=== PATIENT | male | born 1935 | race Caucasian/White ===

== ENCOUNTER 2022-09-12 15:30 | Emergency (ER) | payer OTHER ==
[~2022-09-12] VITALS: Ht 180.3 cm; Wt 70.8 kg
[2022-09-12 16:07] VITALS: BP_SYST 141
--- NOTE | 2022-09-12 16:51 | NUR ---
Patient to ER bed 04 to gown for evaluation. Side rails up.
--- NOTE | 2022-09-12 16:59 | NUR ---
Pt brought by self,A&Ox4, pt presents to ER with LAC on L ear after trip and fall, denies other injuries, denies taking blood thiners, skin pink and warm, cap refill <3.
--- NOTE | 2022-09-12 17:34 | NUR ---
PATIENT TAKEN TO RADIOLOGY
--- NOTE | 2022-09-12 18:30 | NUR ---
EDP AT BEDSIDE FOR INITIAL ASSESSMENT
[2022-09-12] MEDS ORDERED: LIDOCAINE 1% 10 MG/ML, 20 ML MDV INJ ONE (18:45)
--- NOTE | 2022-09-12 19:50 | NUR ---
AT BEDSIDE DOING LAC REPAIR
[2022-09-12] MEDS ORDERED: ACET325T PO (20:00)
[2022-09-12] MEDS ORDERED: BACITRACIN 1 GM OINT TP ONE (20:15)
--- NOTE | 2022-09-12 20:21 | NUR ---
Patient given written and verbal discharge instructions and verbalizes understanding. ER MD discussed with patient the results and treatment provided. Patient in stable condition. ID arm band removed. Rx of Tylenol given. Patient educated on pain management and to follow up with PMD. Pain Scale 2/10. Opportunity for questions provided and answered. Medication side effect fact sheet provided.
[2022-09-12 20:22] VITALS: BP_SYST 141
== END 2022-09-12 20:22 | disposition home or self-care (01) ==
LOC: SED 15:30
DX: S01.01XA Laceration without foreign body of scalp, initial encounter (principal); S01.312A Laceration without foreign body of left ear, initial encounter; I10 Essential (primary) hypertension; Z79.899 Other long term (current) drug therapy; Y04.2XXA Assault by strike against or bumped into by another person, initial encounter; Y93.89 Activity, other specified; Y92.89 Other specified places as the place of occurrence of the external cause; Y99.8 Other external cause status
CPT/HCPCS: 99284; 70450; 72125; 76376; 12001; 12014; J2001

== ENCOUNTER 2023-05-12 07:53 | Inpatient (IN) | payer OTHER ==
[~2023-05-12] VITALS: Ht 177.8 cm; Wt 77.6 kg
[~2023-05-12 07:53] MED LIST: ACET325T PO
[2023-05-12 08:05] VITALS: BP_SYST 120; PULSE 96; RESP 16; TEMP 98.2; O2SAT 97
[2023-05-12] MEDS ORDERED: ATOR10TA68 PO (09:40)
[2023-05-12] MEDS ORDERED: AMLO-500 PO (09:40)
[2023-05-12 09:43] LABS: BASOPHILS % (AUTO) 0.6 % (0.0-2.0); EOSINOPHILS # (AUTO) 0.1 K/uL (0.0-0.4); EOSINOPHILS % (AUTO) 1.6 % (0.0-4.0); HEMATOCRIT 34.8 % (36-54); HEMOGLOBIN 11.5 g/dL (14.0-18.0); LYMPHOCYTES # (AUTO) 0.8 K/uL (1.0-5.5); LYMPHOCYTES % (AUTO) 11.7 % (20.5-51.5); MEAN CORPUSCULAR HEMOGLOBIN 30 pg (27-31); MEAN CORPUSCULAR HGB CONC 33 % (32-36); MEAN CORPUSCULAR VOLUME 90 fL (79.0-98.0); MONOCYTES # (AUTO) 0.7 K/uL (0.0-1.0); MONOCYTES % (AUTO) 10.1 % (1.7-9.3); NEUTROPHILS # (AUTO) 5.1 K/uL (1.8-7.7); PLATELET COUNT (AUTO) 163 K/uL (130-430); RED BLOOD CELL COUNT(AUTO) 3.86 MIL/uL (4.2-6.2); RED CELL DISTRIBUTION WIDTH 15.1 % (9.0-15.0); WHITE BLOOD COUNT (AUTO) 6.7 K/uL (4.8-10.8)
[2023-05-12] MEDS ORDERED: HYDROcodone/ACETAMIN 10-325 MG TAB PO ONE (09:45)
[2023-05-12] MEDS ORDERED: IBUPROFEN 800 MG TABLET PO ONE (09:45)
[2023-05-12 09:47] LABS: ANION GAP 8 (5-15); CALCIUM 8.1 mg/dL (8.4-11.0); CARBON DIOXIDE 27 mmol/L (23-29); CHLORIDE 106 mmol/L (98-107); CREATININE 1.33 mg/dL (0.55-1.30); GLUCOSE 101 mg/dL (74-106); SODIUM SERUM 141 mmol/L (136-145); UREA NITROGEN, BLOOD 17 mg/dL (8-21)
[2023-05-12 09:54] LABS: ALANINE AMINOTRANSFERASE 9 U/L (12-78); ALBUMIN 3.3 g/dL (3.4-4.8); ASPARTATE AMINOTRANSFERASE 14 U/L (10-37); CREATINE KINASE, TOTAL 64 U/L (39-308); TOTAL BILIRUBIN 0.5 mg/dL (0.0-1.0); TOTAL PROTEIN, SERUM 6.2 g/dL (6.4-8.3)
[2023-05-12 10:02] LABS: ACETONE, SERUM NEGATIVE (NEGATIVE)
[2023-05-12] MEDS ORDERED: MORPHINE 4 MG INJ. 4 MG/ML VIAL IVP PRN (10:30)
[2023-05-12] MEDS ORDERED: ONDANSETRON HCL 4 MG/2 ML VIAL IVP PRN (10:30)
[2023-05-12] MEDS ORDERED: TRAZ-250 PO (10:33)
[2023-05-12] MEDS ORDERED: LORazepam 2 MG/ML VIAL IVP ONE (11:00)
[2023-05-12] MEDS ORDERED: NACL 0.9% 1,000 ML IV ONE (11:00)
[2023-05-12] MEDS ORDERED: ASPI-1393 PO (12:52)
[2023-05-12 13:15] VITALS: BP_SYST 144; PULSE 88; RESP 16; TEMP 97.4; O2SAT 96
[2023-05-12 14:00] VITALS: BP_SYST 144; PULSE 88; RESP 16; TEMP 97.4
[2023-05-12] MEDS: MORPHINE 2 MG/ML INJ. SYRINGE IVP PRN ×2 (14:59→22:43)
[2023-05-12 15:55] VITALS: BP_SYST 144; PULSE 88; RESP 16; TEMP 97.4; O2SAT 96
[2023-05-12] MEDS: D5/0.45 NS 1,000 ML IV SCH ×2 (15:56→20:30)
[2023-05-12 16:00] VITALS: BP_SYST 160; PULSE 98; RESP 18; TEMP 97.4; O2SAT 96
[2023-05-12 16:01] LABS: CLARITY/URINE CLEAR (CLEAR); COLOR,URINE YELLOW (YELLOW)
[2023-05-12 16:02] LABS: BILIRUBIN,URINE NEGATIVE (NEGATIVE); BLOOD, URINE NEGATIVE (NEGATIVE); GLUCOSE,URINE NEGATIVE (NEGATIVE); KETONES,URINE TRACE (NEGATIVE); LEUKOCYTE ESTERASE ,URINE NEGATIVE (NEGATIVE); NITRITE, URINE NEGATIVE (NEGATIVE); PROTEIN URINE TRACE (NEGATIVE); UROBILINOGEN,URINE 0.2 (0.2-1.0)
[2023-05-12 20:00] VITALS: BP_SYST 151; PULSE 96; RESP 20; TEMP 98.1; O2SAT 96
[2023-05-12] MEDS: DICLOFENAC SODIUM 25 MG TABLET.DR PO SCH (21:19)
[2023-05-12] MEDS: HEPARIN SODIUM,PORCINE 5,000 UNITS/ML VIAL SUBCUT SCH (21:27)
[2023-05-13 00:48] VITALS: BP_SYST 147; PULSE 116; RESP 21; TEMP 98.1; O2SAT 95
[2023-05-13] MEDS: D5/0.45 NS 1,000 ML IV SCH ×3 (02:26→23:17)
[2023-05-13 05:32] LABS: BASOPHILS % (AUTO) 0.5 % (0.0-2.0); EOSINOPHILS % (AUTO) 0.2 % (0.0-4.0); HEMATOCRIT 35.7 % (36-54); LYMPHOCYTES # (AUTO) 0.4 K/uL (1.0-5.5); LYMPHOCYTES % (AUTO) 4.6 % (20.5-51.5); MEAN CORPUSCULAR HEMOGLOBIN 30 pg (27-31); MEAN CORPUSCULAR HGB CONC 34 % (32-36); MEAN CORPUSCULAR VOLUME 89 fL (79.0-98.0); MONOCYTES # (AUTO) 0.9 K/uL (0.0-1.0); MONOCYTES % (AUTO) 9.8 % (1.7-9.3); NEUTROPHILS # (AUTO) 7.5 K/uL (1.8-7.7); NEUTROPHILS % (AUTO) 84.9 % (40.0-70.0); PLATELET COUNT (AUTO) 155 K/uL (130-430); RED BLOOD CELL COUNT(AUTO) 4.02 MIL/uL (4.2-6.2); WHITE BLOOD COUNT (AUTO) 8.8 K/uL (4.8-10.8)
[2023-05-13 05:40] LABS: ANION GAP 9 (5-15); CALCIUM 7.9 mg/dL (8.4-11.0); CARBON DIOXIDE 25 mmol/L (23-29); CHLORIDE 104 mmol/L (98-107); CREATININE 1.15 mg/dL (0.55-1.30); GLUCOSE 139 mg/dL (74-106); POTASSIUM 3.7 mmol/L (3.5-5.1); SODIUM SERUM 138 mmol/L (136-145); UREA NITROGEN, BLOOD 12 mg/dL (8-21)
[2023-05-13] MEDS: HEPARIN SODIUM,PORCINE 5,000 UNITS/ML VIAL SUBCUT SCH ×3 (06:06→22:00)
[2023-05-13 07:39] LABS: INR 1.1 (0.80-1.20)
[2023-05-13 08:30] VITALS: BP_SYST 137; PULSE 84; RESP 18; TEMP 97.8; O2SAT 98
[2023-05-13] MEDS ORDERED: traZODone HCL 50 MG TABLET (DESYREL) PO PRN (08:30)
[2023-05-13] MEDS ORDERED: ACETAMINOPHEN 325 MG TABLET PO PRN (08:30)
[2023-05-13] MEDS ORDERED: ATORVASTATIN 10 MG TABLET PO SCH (09:00)
[2023-05-13] MEDS: ASPIRIN 81 MG TABLET(ECOTRIN) PO SCH (09:51)
[2023-05-13] MEDS: ATORVASTATIN 10 MG TABLET PO SCH (09:53)
[2023-05-13] MEDS: DICLOFENAC SODIUM 25 MG TABLET.DR PO SCH ×2 (09:53→20:45)
[2023-05-13 11:30] VITALS: BP_SYST 123; PULSE 80; RESP 19; TEMP 98.1; O2SAT 95
[2023-05-13] MEDS: MORPHINE 2 MG/ML INJ. SYRINGE IVP PRN (12:08)
[2023-05-13] MEDS ORDERED: hydrALAZINE HCL 25 MG TABLET PO PRN (16:45)
[2023-05-13 17:30] VITALS: BP_SYST 147; PULSE 85; RESP 18; TEMP 99; O2SAT 95
[2023-05-13 20:00] VITALS: BP_SYST 134; PULSE 90; RESP 18; TEMP 98.4; O2SAT 96
[2023-05-14 00:42] VITALS: BP_SYST 125; PULSE 84; RESP 20; TEMP 97.4; O2SAT 97
[2023-05-14] MEDS: HEPARIN SODIUM,PORCINE 5,000 UNITS/ML VIAL SUBCUT SCH ×3 (06:00→21:10)
[2023-05-14 08:00] VITALS: BP_SYST 139; BP_SYST 96; PULSE 80; PULSE 85; RESP 16; RESP 18; TEMP 97; TEMP 97.1; O2SAT 96; O2SAT 97
[2023-05-14] MEDS: ASPIRIN 81 MG TABLET(ECOTRIN) PO SCH (08:08)
[2023-05-14] MEDS: ATORVASTATIN 10 MG TABLET PO SCH (08:08)
[2023-05-14] MEDS: DICLOFENAC SODIUM 25 MG TABLET.DR PO SCH ×2 (08:08→21:08)
[2023-05-14] MEDS ORDERED: KETOROLAC TROMETHAMINE 30 MG VIAL IVP PRN (10:45)
[2023-05-14] MEDS ORDERED: NALOXONE HCL 0.4 MG/ML AMP (NARCAN) IVP PRN ×2 (10:45)
[2023-05-14] MEDS ORDERED: ePHEDrine sulfate 50 MG/ML VIAL IVP PRN (10:45)
[2023-05-14] MEDS ORDERED: LR 1,000 ML IV SCH (10:45)
[2023-05-14] MEDS ORDERED: ONDANSETRON HCL 4 MG/2 ML VIAL IVP PRN (10:45)
[2023-05-14] MEDS ORDERED: HYDROmorphone 1 MG/ML INJ. CARTRIDGE IVP PRN (10:45)
[2023-05-14] MEDS ORDERED: MEPERIDINE HCL/PF 25 MG/ML DISP.SYRIN IVP PRN (10:45)
[2023-05-14] MEDS ORDERED: traMADol HCL HCL 50 MG TABLET (ULTRAM) PO PRN (11:00)
[2023-05-14] MEDS ORDERED: BISACODYL 10 MG/SUPPOSITORY RC PRN (11:45)
[2023-05-14] MEDS: D5/0.45 NS 1,000 ML IV SCH ×2 (12:30→23:58)
[2023-05-14 12:52] VITALS: BP_SYST 114; PULSE 89; RESP 17; TEMP 96.8; O2SAT 99
[2023-05-14] MEDS: ceFAZolin SODIUM 2 GM in D5W 50 ML IV SCH ×2 (13:04→21:07)
[2023-05-14 16:42] VITALS: BP_SYST 128; PULSE 99; RESP 19; TEMP 98.3; O2SAT 97
[2023-05-14 20:00] VITALS: BP_SYST 137; PULSE 95; RESP 18; TEMP 98.1; O2SAT 100; O2SAT 95
[2023-05-14] MEDS: SENNOSIDES/DOCUSATE SODIUM 1 TAB TABLET(SENOKOT-S) PO SCH (21:07)
[2023-05-15 00:32] VITALS: BP_SYST 107; PULSE 103; RESP 16; TEMP 96.8; O2SAT 99
[2023-05-15 02:18] VITALS: BP_SYST 128; PULSE 105; RESP 19
[2023-05-15 04:12] LABS: BASOPHILS % (AUTO) 0.1 % (0.0-2.0); HEMATOCRIT 32.6 % (36-54); LYMPHOCYTES # (AUTO) 0.3 K/uL (1.0-5.5); LYMPHOCYTES % (AUTO) 3.8 % (20.5-51.5); MEAN CORPUSCULAR HEMOGLOBIN 30 pg (27-31); MEAN CORPUSCULAR HGB CONC 34 % (32-36); MEAN CORPUSCULAR VOLUME 88 fL (79.0-98.0); MONOCYTES % (AUTO) 11.5 % (1.7-9.3); NEUTROPHILS # (AUTO) 7.2 K/uL (1.8-7.7); NEUTROPHILS % (AUTO) 84.6 % (40.0-70.0); PLATELET COUNT (AUTO) 151 K/uL (130-430); RED CELL DISTRIBUTION WIDTH 14.6 % (9.0-15.0); WHITE BLOOD COUNT (AUTO) 8.6 K/uL (4.8-10.8)
[2023-05-15 05:01] LABS: ANION GAP 7 (5-15); CALCIUM 7.6 mg/dL (8.4-11.0); CARBON DIOXIDE 27 mmol/L (23-29); CHLORIDE 103 mmol/L (98-107); CREATININE 1.11 mg/dL (0.55-1.30); GLUCOSE 139 mg/dL (74-106); POTASSIUM 3.4 mmol/L (3.5-5.1); SODIUM SERUM 137 mmol/L (136-145); UREA NITROGEN, BLOOD 11 mg/dL (8-21)
[2023-05-15] MEDS: ceFAZolin SODIUM 2 GM in D5W 50 ML IV SCH (05:22)
[2023-05-15] MEDS: HEPARIN SODIUM,PORCINE 5,000 UNITS/ML VIAL SUBCUT SCH (05:24)
[2023-05-15 08:00] VITALS: BP_SYST 144; PULSE 101; RESP 18; TEMP 97.6; O2SAT 97
[2023-05-15] MEDS: D5/0.45 NS 1,000 ML IV SCH (08:30)
[2023-05-15] MEDS: SENNOSIDES/DOCUSATE SODIUM 1 TAB TABLET(SENOKOT-S) PO SCH (08:31)
[2023-05-15] MEDS: ATORVASTATIN 10 MG TABLET PO SCH (08:31)
[2023-05-15] MEDS: DICLOFENAC SODIUM 25 MG TABLET.DR PO SCH (08:31)
[2023-05-15] MEDS ORDERED: ASPIRIN 81 MG TAB.CHEW PO SCH (09:00)
[2023-05-15] MEDS ORDERED: ENOXAPARIN SODIUM 40 MG/0.4 ML SYRINGE SUBCUT SCH (09:00)
[2023-05-15 11:35] VITALS: BP_SYST 134; PULSE 57; RESP 16; TEMP 98.2; O2SAT 94
[2023-05-15 16:31] VITALS: BP_SYST 130; PULSE 59; RESP 17; TEMP 98; O2SAT 94
[2023-05-15 17:24] VITALS: BP_SYST 139; PULSE 95; RESP 18; TEMP 97.1; O2SAT 97
== END 2023-05-15 19:17 | DRG 522 ==
LOC: SED 07:53 → SMU 10:27
PROVIDERS: ADMIT Specialist; ATTEND Specialist
PROC: 0SRR0JZ Replacement of Right Hip Joint, Femoral Surface with Synthetic Substitute, Open Approach (ICD-10-PCS; principal; 2023-05-14 09:37)
DX: S72.011A Unspecified intracapsular fracture of right femur, initial encounter for closed fracture (principal); I10 Essential (primary) hypertension; W18.39XA Other fall on same level, initial encounter; M81.0 Age-related osteoporosis without current pathological fracture; E78.5 Hyperlipidemia, unspecified; Z86.73 Personal history of transient ischemic attack (TIA), and cerebral infarction without residual deficits; Y93.89 Activity, other specified; Y92.89 Other specified places as the place of occurrence of the external cause; Y99.8 Other external cause status; Z79.82 Long term (current) use of aspirin; Z79.899 Other long term (current) drug therapy; Z79.1 Long term (current) use of non-steroidal anti-inflammatories (NSAID)
CPT/HCPCS: 36415; 71045; 72100-TC; 72170-TC; 72192-TC; 73501; 73552; 73564; 76376; 80048; 80053; 81003; 82009; 82550; 83605; 84484; 85025; 85610-TC; 85730-TC; 86886; 86900; 86901; 87081; 88305; 88311; 93005; 93306; 97110-GP; 97163-GP; 97530-GP; 99285; A4649; C1776; J1644; J1650; J2270; J7060